=== PATIENT | female | born 1955 ===

== ENCOUNTER 2017-09-22 09:43 | Emergency (ER) | payer SELFPAY ==
[2017-09-22 09:59] VITALS: BMI 30.4
[2017-09-22 10:02] VITALS: BP 123/80; PULSE 69; RESP 18; TEMP 98.4; O2SAT 98
--- NOTE | 2017-09-22 10:27 | C.PDOC ---
History Of Present Illness 62 year old female presents to the ER with a complaint of not feeling well, dry cough, and runny nose worsening over the past 3 days. As per daughter, patient has not gotten the flu shot this year and has not taken anything for the pain. Denies sick contact or recent travel. Time Seen by Provider: 09/22/17 10:22 Chief Complaint (Nursing): Flu-like Symptoms History Per: Family History/Exam Limitations: no limitations Onset/Duration Of Symptoms: Days Current Symptoms Are (Timing): Still Present Associated Symptoms: Cough, Sinus Drainage, Other (Not feeling well). denies: Sputum Ear Symptoms: Bilateral: None Recent travel outside of the [place]: No Past Medical History Reviewed: Historical Data, Nursing Documentation, Vital Signs Vital Signs: Last Vital Signs Temp 98.4 F 09/22/17 10:01 Pulse 69 09/22/17 10:01 Resp 18 09/22/17 10:01 BP 123/80 09/22/17 10:01 Pulse Ox 98 09/22/17 11:00 Surgical History: Appendectomy, Cholecystectomy, Family History: States: Unknown Family Hx - Social History Hx Alcohol Use: No Hx Substance Use: No - Immunization History Hx Tetanus Toxoid Vaccination: No Hx Influenza Vaccination: No Hx Pneumococcal Vaccination: No Review Of Systems Except As Marked, All Systems Reviewed And Found Negative. Constitutional: Positive for: Other (Not feeling well) ENT: Positive for: Nose Discharge Respiratory: Positive for: Cough. Negative for: Sputum Physical Exam - Physical Exam Additional Physical Exam Comments: Appears: Well Appearing. Non-toxic. Skin: No rash. Head: Atraumatic. Normacephalic. Eye(s): EOMI Oral: No pharyngeal erythema or exudates.. Neck: No nuchal rigidity. Chest: No Deformity, No Tenderness Respiratory: No Accessory Muscle Use Gastrointestinal/Abdominal: Soft. No Tenderness. No guarding. No rebound. Back: No Vertebral Tenderness Extremity: Full ROM. No tenderness. No swelling. Cap Refill <2. Pulses: Normal. Neurological/Psych: Alert. Oriented x3. Gait: Steady. ED Course And Treatment O2 Sat by Pulse Oximetry: 98 Medical Decision Making Medical Decision Making: Patient with no vital sign abnormalities, appears well, will treat supportively , f/u PMD, instructed to return to ED for worsening pain, fever, dyspnea, vomiting. Disposition - Disposition Referrals: [facility] [Outside] Disposition: HOME/ ROUTINE Disposition Time: 10:26 Condition: STABLE Prescriptions: Oseltamivir Phosphate [Tamiflu] 75 mg PO BID #9 capsule Instructions: Viral Syndrome (DC) Forms: [facility] (Upper [place]), Work Excuse - Clinical Impression Clinical Impression: Influenza-like illness - Scribe Statement The provider has reviewed the documentation as recorded by the Scribe Han Tee All medical record entries made by the Scribe were at my direction and personally dictated by me. I have reviewed the chart and agree that the record accurately reflects my personal performance of the history, physical exam, medical decision making, and the department course for this patient. I have also personally directed, reviewed, and agree with the discharge instructions and disposition.
== END 2017-09-22 10:47 | disposition home or self-care (01) ==
LOC: C.ER 09:43
DX: J11.1 Influenza due to unidentified influenza virus with other respiratory manifestations (principal)